=== PATIENT | male | born 1980 ===

== ENCOUNTER 2016-12-26 21:02 | Inpatient (IN) | payer OTHER ==
--- NOTE | 2016-12-26 21:21 | C.PDOC ---
History Of Present Illness Patient was brought in by ambulance after his called EMS after he told her he was having suicidal thoughts. states the patient did not respond to her text message which prompted the call. Some texts on the patient's phone do not make sense; he states he does not know his mother's phone number which is the phone is he is currently using. Patient gave knockout worker his sister's phone number; however, upon calling the number they found that the person on the line did not known who the patient. Patient denies suicidal ideation, homicidal ideation, or physical complaints at this time. Time Seen by Provider: 12/26/16 21:21 Chief Complaint (Nursing): Psychiatric Evaluation History Per: Patient History/Exam Limitations: no limitations Onset/Duration Of Symptoms: Days Current Symptoms Are (Timing): Still Present Suicide/Self Injury Attempted (Context): None Modifying Factor(s): None Severity: None Pain Scale Rating Of: 0 Associated Symptoms: denies: Depression, Suicidal Thoughts, Suicidal Plan Involuntary Hold By: None Recent travel outside of the [place]: No Past Medical History Reviewed: Historical Data, Nursing Documentation, Vital Signs Vital Signs: Last Vital Signs Temp 98.5 F 12/27/16 00:53 Pulse 82 12/27/16 00:53 Resp 18 12/27/16 00:53 BP 123/81 12/27/16 00:53 Pulse Ox 97 12/27/16 00:53 - Medical History PMH: HTN, Post Traumatic Stress Disorder Surgical History: No Surg Hx Family History: States: No Known Family Hx - Social History Hx Alcohol Use: No Hx Substance Use: No - Immunization History Hx Tetanus Toxoid Vaccination: No Hx Influenza Vaccination: No Hx Pneumococcal Vaccination: No Review Of Systems Constitutional: Negative for: Fever, Chills Gastrointestinal: Negative for: Nausea, Vomiting, Diarrhea Psych: Negative for: Suicidal ideation Physical Exam - Physical Exam Appears: Non-toxic Skin: Warm, Dry Oral Mucosa: Moist Chest: Symmetrical, No Tenderness Cardiovascular: Rhythm Regular, No Murmur Respiratory: No Rales, No Rhonchi, No Wheezing Gastrointestinal/Abdominal: Soft, No Tenderness Neurological/Psych: Oriented x3 ED Course And Treatment - Laboratory Results Result Diagrams: 12/26/16 22:31 12/26/16 22:31 O2 Sat by Pulse Oximetry: 98 (Room air) Pulse Ox Interpretation: Normal Progress Note: Blood work and urinalysis ordered. Disposition Discussed With Dr.: Dajuan Graham Comment: accepted the pt on sservice and took over the care at 3:15 AM Doctor Will See Patient In The: Hospital Counseled Patient/Family Regarding: Studies Performed, Diagnosis - Disposition Disposition: HOSPITALIZED Disposition Time: 21:21 Condition: [facility]IR Forms: [facility] ([place]) - POA Present On Arrival: None - Clinical Impression Clinical Impression: Major depression, PTSD (post-traumatic stress disorder) - Scribe Statement The provider has reviewed the documentation as recorded by the Scribe Ambrosio Miranda All medical record entries made by the Scribe were at my direction and personally dictated by me. I have reviewed the chart and agree that the record accurately reflects my personal performance of the history, physical exam, medical decision making, and the department course for this patient. I have also personally directed, reviewed, and agree with the discharge instructions and disposition. Decision To Admit - Pt Status Changed To: Hospital Disposition Of: Inpatient - Admit Certification Admit to Inpatient:: After my assessment, the patient will require hospitalization for at least two midnights. This is because of the severity of symptoms shown, intensity of services needed, and/or the medical risk in this patient being treated as an outpatient. - InPatient: Physician Admission Certification: I certify that this patient requires 2 or more midnights of care for the following reason:: After my assessment, the patient will require hospitalization for at least two midnights. This is because of the severity of symptoms shown, intensity of services needed, and/or the medical risk in this patient being treated as an outpatient. - . Bed Request Type: Psychiatry Admitting Physician: Dajuan Graham Patient Diagnosis: Major depression, PTSD (post-traumatic stress disorder)
[2016-12-26 22:35] LABS: BASO # 0.1 K/uL (0.0-0.2); BASO % 1.1 % (0.0-2.0); EOS # 0.5 K/uL (0.0-0.7); EOS % 6.1 % (0.0-4.0); LYMPH # 2.7 K/uL (1.0-4.3); LYMPH % 32.1 % (20.0-40.0); MEAN CELL VOLUME 80.1 fL (80.0-94.0); MEAN CORPUSCULAR HEMOGLOBIN 26.8 pg (27.0-31.0); MEAN CORPUSCULAR HGB CONC 33.4 g/dL (33.0-37.0); MEAN PLATELET VOLUME 8.4 fL (7.2-11.7); MONO # 0.8 K/uL (0.0-0.8); NEUT # 4.2 K/uL (1.8-7.0); NEUT % 50.7 % (50.0-75.0); RBC 5.61 Mil/uL (4.40-5.90); RED CELL DISTRIBUTION WIDTH 14.6 % (11.5-14.5); WHITE BLOOD COUNT 8.4 K/uL (4.8-10.8)
[2016-12-26 22:41] LABS: URINE BACTERIA RARE (<OCC); URINE BILIRUBIN NEGATIVE (NEGATIVE); URINE BLOOD NEGATIVE (NEGATIVE); URINE CLARITY Clear (Clear); URINE COLOR Colorless (YELLOW); URINE GLUCOSE (UA) NORMAL (Normal); URINE LEUKOCYTE ESTERASE NEG Leu/uL (Negative); URINE NITRATE NEGATIVE (NEGATIVE); URINE PROTEIN NEGATIVE (NEGATIVE); URINE UROBILINOGEN NORMAL mg/dL (0.2-1.0)
[2016-12-26 22:42] LABS: ALBUMIN 4.5 g/dL (3.5-5.0)
[2016-12-26 22:45] LABS: AST/SGOT 25 U/L (17-59); GFR AFRICAN-AMERICAN > 60; GFR NON-AFRICAN AMERICAN > 60
[2016-12-26 22:46] LABS: ALB/GLOB RATIO 1.4 (1.0-2.1); ALT/SGPT 35 U/L (21-72); BLOOD UREA NITROGEN 10 mg/dL (9-20); CALCIUM 9.2 mg/dl (8.6-10.4)
[2016-12-26 22:50] LABS: BARBITURATES, UR NEGATIVE (NEGATIVE)
[2016-12-26 22:51] LABS: BENZODIAZEPINES, UR POSITIVE (NEGATIVE)
[2016-12-26 22:53] LABS: OPIATES, UR NEGATIVE (NEGATIVE); PHENCYCLIDINE, UR NEGATIVE (NEGATIVE)
--- NOTE | 2016-12-27 04:37 | PCM.BM ---
<Mateo Marie - Last Filed: 12/27/16 04:35> Treatment Plan Problems - Problems identified on initial assessmt Major Depression Date Initiated: 12/27/16 Time Initiated: 04:35 Assessment reference: NA Status: Active Suicidal Ideation Date Initiated: 12/27/16 Time Initiated: 04:36 Assessment reference: NA Status: Active Substance Abuse Date Initiated: 12/27/16 Time Initiated: 04:37 Assessment reference: NA Status: Active (Abusing cocaine and Percocet) Treatment assets and liabiliti Patient Assests: cooperative, self-reliant, ADL independent, good support system , negotiates basic needs, cognitively intact Patient Liabilities: physical pain, financial problems, relationship conflicts, substance abuse - Milieu Protocol Maintain good personal hygiene: daily Encourage regular showers, daily Remind patient to perform daily oral care, daily Assist patient to perform ADL's Maintain personal safety: every shift Educate patient to report safety concerns to staff, every shift Monitor environment for contraband/sharps Medication safety: Monitor for expected outcome, potential side effects: every shift, Assess barriers to learning: every shift, Assess readiness for medication education: every shift <Tanya Carr - Last Filed: 12/28/16 10:25> Discharge/Continuing Care - Education Needs Education Needs: Patient Medication, Patient Coping Skills, Patient Placement options, Patient Community resources - Discharge Discharge Criteria: Tolerates medication w/o severe side effects, Free of Suicidal thoughts, Reduction of target symptoms <Vickey Benavides - Last Filed: 12/28/16 10:26> - Diagnosis (1) Bipolar 1 disorder, mixed, moderate Status: Acute Interventions: 12/28/16 10:27 * Assess/adjust medications daily and /or as needed * See patient on an individual basis 7x/week to assess level of manic behaviors and stability * Discuss risks, benefits, side effects and alternatives of medications (2) Cocaine use disorder, moderate, dependence Status: Acute Interventions: 12/28/16 10:28 * Assess 7x/week regarding severity of withdrawal * Educate regarding risks, benefits, side effects and alternatives of medications * Use Motivational Interviewing for abstinence * Use CBT for relapse prevention * Medication management for withdrawal symptoms * Encourage medication assisted treatment (3) Sedative, hypnotic or anxiolytic use disorder, moderate, in controlled environment Status: Acute Interventions: 12/28/16 10:28 * Assess 7x/week regarding severity of withdrawal * Educate regarding risks, benefits, side effects and alternatives of medications * Use Motivational Interviewing for abstinence * Use CBT for relapse prevention * Medication management for withdrawal symptoms * Encourage medication assisted treatment <Ashleigh Ortiz - Last Filed: 12/28/16 11:07> Treatment assets and liabiliti Patient Assests: cooperative, ADL independent, good support system, cognitively intact Patient Liabilities: relationship conflicts, substance abuse - Milieu Protocol Maintain good personal hygiene: daily Encourage regular showers Conduct patient checks and document Observation sheet: Q15 minutes Maintain personal safety: every shift Educate patient to report safety concerns to staff, every shift Monitor environment for contraband/sharps Medication safety: Monitor for expected outcome, potential side effects: every shift, Assess barriers to learning: every shift, Assess readiness for medication education: every shift
--- NOTE | 2016-12-27 11:05 | PCM.PSYCH ---
Initial Psychiatric Evaluation - Initial Psychiatric Evaluation Chief Complaint (in patient's own words): "I can't sleep" Patient's Reaction to Hospitalization: cooperative History of Present Illness and Precipitating Events: The patient was seen, the chart was reviewed and the case was discussed. Mr Lamb is a 36 year old male with a psychiatric history of PTSD, anxiety and depression who was brought to the ED by EMS for suicidal ideations. The patient's story as provided in the ED and nursing staff is slightly different compared to what he told me. Patient stated he currently lives in [place] with his and 4 children and has been experiencing increased level of stress and anxiety due to the recent of his 4th child and the constant arguments with his . To get away from the stress, 1 month ago he came to [place] to live with his mother. He says he started to feel fatigued secondary to insomnia brought on by his PTSD and that a few days ago he bought some cocaine from his nephew to cope with the fatigue. When his sister found out she became irate, they began to argue and in a rhetorical manner the patient told her "maybe i'll jump out of a window and kill myself, that'll fix everything". The patient's sister then called police who brought him to [facility]. The patient currently denies suicidal ideation or a history of suicidal ideation and states his comment to his sister was said in the context of a heated argument. He admits to recently feeling depressed, anxious, fearful, defensive, hypervigilant with attempts to isolate himself. He says he sees a psychiatrist once a month in [place] through [facility]. He has no history of previous psychiatric hospitalizations. 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 He admits to recent cocaine and marijuana. 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 He says he has a mitesh in the left leg and metal screws in the right knee. He denies all other substance abuse. He denies xanax abuse and says he only takes it as prescribed. When I questioned him about contacting his pharmacy to verify his medications he became tense and said it's not possible. When I asked him if I could contact the [place] regarding any previous treatment he became tense and said he [facility] not [facility]. Psychiatric hx: PTSD; Anxiety disorder; depression Other medical hx: mitesh in the left leg and metal screws in the right knee due to accident Medications: (all meds unverified) abilify, paxil, temazepam; xanax; percocet prn; ambien prn Allergies: no known allergies Social hx: lives with and 4 kids in [place], currently in living with mother; [place] war ; smokes 1/2 ppd for 18 years; denies EtOH use; cocaine and marijuana use in last month; unemployed, on disability for PTSD Fam hx: denies Current Medications: Active Medications Generic Name Dose Route Start Last Admin Trade Name Freq PRN Reason Stop Dose Admin Benztropine Mesylate 2 mg 12/27/16 09:50 Cogentin PO Q6 PRN Extra Pyramidal Symptoms Diphenhydramine HCl 50 mg 12/27/16 09:50 Benadryl PO Q6 PRN Extra Pyramidal Symptoms Haloperidol 5 mg 12/27/16 09:50 Haldol PO Q8 PRN Moderate Agitation Trazodone HCl 50 mg 12/27/16 22:00 Desyrel PO HS [facility] Past Psychiatric History - Past Psychiatric History Prior Psychiatric Treatment: outpatient History of ETOH/Drug Use: denies History of Family Illness: denies Pertinent Medical Hx (Current Medical&Sleep Prob, Allergies): Allergies Allergy/AdvReac Type Severity Reaction Status Date / Time No Known Allergies Allergy Verified 12/26/16 21:11 Ambien 12/26/16 Percocet 5/325 mg Tab 12/26/16 Temazepam 12/26/16 Review of Systems - Psychiatric Psychiatric: Abnormal Sleep Pattern, Anhedonia, Anxiety, Depression, Difficulty Concentrating, Hopelessness. absent: Auditory Hallucinations, Homicidal Ideation, Suicidal Ideation, Visual Hallucinations Mental Status Examination - Personal Presentation Personal Presentation: Looks stated age - Affect Affect: Broad - Motor Activity Motor Activity: Calm - Reliability in Providing Information Reliability in Providing Information: Good - Speech Speech: Organized - Mood Mood: Anxious, Neutral - Formal Thought Process Formal Thought Process: No Impairment - Obsessions/Compulsions Obsessions: No Compulsions: No - Cognitive Functions Orientation: Person, Place, Situation, Time Sensorium: Alert Attention/Concentration: Attentive Abstract Thinking: Hinkley Estimate of Intelligence: Average Judgement: Intact, as evidence by: Good judgement Memory: Recent intact, as evidence by: Ability to recall events of the day - Risk Risk: Diminished functioning - Strength & Assets Inventory Strength & Assets Inventory: Intelligence, Cooperative - Limitations Limitations: Other (unemployed) DSM 5 DX - DSM 5 DSM 5 Diagnosis: PTSD Major depressive disorder generalized anxiety disorder - Recommended/Plan of Treatment Treatment Recommendations and Plan of Treatment: benztropine 2mg po q6 prn diphenhydramine 50mg po q6 prn divalproex 250mg po bid haloperidol 5mg po q8 prn lorazepam 1mg po q6 prn quetiapine 100mg po hs trazodone 50mg po hs nicotine patch td daily Attend groups and activities MA for abstinence and CBT for relapse prevention Support and psychoeducation Consider and encourage MAT Refer to after care Time spent: 35 mins
[2016-12-27] MEDS: Divalproex 250 mg DR Tab PO SCH (17:06)
[2016-12-28] MEDS: Divalproex 250 mg DR Tab PO SCH ×2 (10:16→17:59)
--- NOTE | 2016-12-28 10:54 | PCM.PYCHPN ---
Psychiatric Progress Note - Psychiatric Progress Note Patient seen today, length of contact: 15 min Patient Chief Complaint: My head is still racing.' Problems Identified/Issues Discussed: Patient seen and evaluated, chart reviewed and discussed with the nurse. Patient remained irritable and agitated. He still reports racing of thoughts and flight of ideas. He remained isolated, confined and withdrawn. He reports depressed mood and feelings of hopelessness and helplessness. He is taking medication and denies any side effects. Supportive therapy and psychoeducation were given. Medication Change: Yes (increase depakote) Medical Record Reviewed: Yes Mental Status Examination - Cognitive Function Orientation: Person, Place, Situation, Time Memory: Intact Attention: WNL Concentration: Poor Association: WNL Fund of Knowledge: Poor - Mood Mood: Anxious, Neutral - Affect Affect: Broad - Formal Thought Process Formal Thought Process: Flight of ideas - Suicidal Ideation Suicidal Ideation: No - Homicidal Ideation Homicidal Ideation: No Goal/Treatment Plan - Goal/Treatment Plan Need for Continued Stay: Discharge may exacerbated symptoms, Severe functional impairment Progress Toward Problem(s) and Goals/Treatment Plan: Bipolar disorder mixed severe without psychotic features CBT Support and psychoeducation Attend groups and activitie Refer to after care benztropine 2mg po q6 prn diphenhydramine 50mg po q6 prn divalproex 250mg po bid haloperidol 5mg po q8 prn quetiapine 100mg po hs trazodone 50mg po hs nicotine patch td daily Cocaine use disorder moderate CBT Psychoeducation Supportive therapy, individual therapy Use [place] for abstinence lorazepam 1mg po q6 prn Sedative / hypnotic use disorder Moderate CBT Psychoeducation Supportive therapy, individual therapy Use [place] for abstinence - Smoking Cessation Smoking Cessation Initiated: No
[2016-12-29] MEDS: Divalproex 250 mg DR Tab PO SCH ×2 (09:55→17:33)
--- NOTE | 2016-12-29 14:43 | PCM.PYCHPN ---
Psychiatric Progress Note - Psychiatric Progress Note Patient seen today, length of contact: 17 min Patient Chief Complaint: I am feeling little better.' Problems Identified/Issues Discussed: Patient seen and evaluated, chart reviewed and discussed with the nurse. Patient reporrts somewhat improvement in his symptoms and reports less irritability and less agitation. He reports some improvement in the racing of thoughts and flight of ideas. He remained isolated, confined and withdrawn. He is taking medication and denies any side effects. He needs more time for stabilization. Supportive therapy and psychoeducation were given. Medication Change: Yes (increase depakote ) Medical Record Reviewed: Yes Mental Status Examination - Cognitive Function Orientation: Person, Place, Situation, Time Memory: Intact Attention: WNL Concentration: Poor Association: WNL Fund of Knowledge: Poor - Mood Mood: Anxious, Neutral - Affect Affect: Broad - Speech Speech: Soft - Formal Thought Process Formal Thought Process: No Impairment - Suicidal Ideation Suicidal Ideation: No - Homicidal Ideation Homicidal Ideation: No Goal/Treatment Plan - Goal/Treatment Plan Need for Continued Stay: Discharge may exacerbated symptoms, Severe functional impairment Progress Toward Problem(s) and Goals/Treatment Plan: Bipolar disorder mixed severe without psychotic features CBT Support and psychoeducation Attend groups and activitie Refer to after care Increase divalproex 500 mg po bid quetiapine 100mg po hs trazodone 50mg po hs nicotine patch td daily Cocaine use disorder moderate CBT Psychoeducation Supportive therapy, individual therapy Use [place] for abstinence lorazepam 1mg po q6 prn Sedative / hypnotic use disorder Moderate CBT Psychoeducation Supportive therapy, individual therapy Use [place] for abstinence - Smoking Cessation Smoking Cessation Initiated: No
[2016-12-30 09:43] VITALS: BP 128/67; PULSE 90; RESP 16; TEMP 98; O2SAT 99
[2016-12-30] MEDS ORDERED: Divalproex 500 mg DR Tab PO SCH (10:00)
== END 2016-12-30 10:00 | disposition home or self-care (01) | DRG 430 ==
LOC: C.ER 21:02 → C.5E 12-27 03:09
DX: F31.63 Bipolar disorder, current episode mixed, severe, without psychotic features (principal); F14.20 Cocaine dependence, uncomplicated; F41.1 Generalized anxiety disorder; F43.10 Post-traumatic stress disorder, unspecified